=== PATIENT | male | born 1995 | race Caucasian/White ===

== ENCOUNTER 2017-04-28 03:19 | Emergency (ER) | payer OTHER ==
[~2017-04-28] VITALS: Ht 182.9 cm; Wt 61.0 kg
[2017-04-28] MEDS ORDERED: LIDOCAINE HCL 1% 10 ML VIAL INJ ONE (03:45)
[2017-04-28 04:31] VITALS: BP 121/83
== END 2017-04-28 04:35 | disposition home or self-care (01) ==
LOC: EMS 03:22
DX: S61.101A Unspecified open wound of right thumb with damage to nail, initial encounter (principal); S67.01XA Crushing injury of right thumb, initial encounter; W23.0XXA Caught, crushed, jammed, or pinched between moving objects, initial encounter; Y93.89 Activity, other specified; Y92.89 Other specified places as the place of occurrence of the external cause; Y99.8 Other external cause status
CPT/HCPCS: 11730; 73130; 99284; J3490

== ENCOUNTER 2017-08-23 17:06 | Inpatient (IN) | payer MEDICAID, OTHER ==
[~2017-08-23] VITALS: Ht 182.9 cm; Wt 62.6 kg
[2017-08-23] MEDS ORDERED: VENL25TA47 PO (18:20)
[2017-08-23] MEDS ORDERED: QUET200T PO (18:20)
[2017-08-23 18:55] LABS: BASOPHILS % (AUTO) 1.3 % (0.0-2.0); EOSINOPHILS % (AUTO) 3.9 % (1.0-6.0); HEMATOCRIT 41.6 % (41-53); HEMOGLOBIN 14.8 g/dL (13.5-17.5); LYMPHOCYTES # (AUTO) 1.6 K/uL (1.0-4.8); LYMPHOCYTES % (AUTO) 26.8 % (22.0-44.0); MEAN CORPUSCULAR HEMOGLOBIN 31.9 pg (26.0-34.0); MEAN CORPUSCULAR HGB CONC 35.4 G/dL (31.0-37.0); MEAN CORPUSCULAR VOLUME 90 fL (80-100); MONOCYTES # (AUTO) 0.6 K/uL (0.1-1.0); MONOCYTES % (AUTO) 9.9 % (2.0-9.0); NEUTROPHILS # (AUTO) 3.4 K/uL (1.8-7.7); NEUTROPHILS % (AUTO) 58.1 % (40.0-70.0); PLATELET COUNT (AUTO) 152 K/uL (150-450); RED BLOOD CELL COUNT(AUTO) 4.63 MIL/uL (4.50-5.90); RED CELL DISTRIBUTION WIDTH 14.7 % (11.5-14.5)
[2017-08-23 18:59] LABS: ANION GAP 7 mmol/L (8-16); CALCIUM, TOTAL 8.6 mg/dL (8.8-10.5); CARBON DIOXIDE 27 mmol/L (22-29); CHLORIDE 109 mmol/L (98-107); CREATININE 0.86 mg/dL (0.60-1.30); GLOMERULAR FILTR. RATE CALC > 60 mL/min (>60); POTASSIUM 4.3 mmol/L (3.5-5.1); SODIUM SERUM 143 mmol/L (136-145); UREA NITROGEN, BLOOD 12 mg/dL (7-18)
[2017-08-23 19:07] LABS: ALANINE AMINOTRANSFERASE 26 U/L (12-78); ALBUMIN 3.8 g/dL (3.4-5.0); ALKALINE PHOSPHATASE 99 U/L (46-116); ASPARTATE AMINOTRANSFERASE 24 U/L (15-37); BILIRUBIN,TOTAL 1.2 mg/dL (0.1-1.0); GLUCOSE,RANDOM 89 mg/dL (70-110); TOTAL PROTEIN, SERUM 7.3 g/dL (6.4-8.2)
[2017-08-23] MEDS ORDERED: LORazepam 2 MG TABLET PO ONE (19:30)
[2017-08-24] MEDS: LORazepam 2 MG TABLET PO PRN ×2 (00:26→20:25)
[2017-08-24 01:36] VITALS: BP 103/79
[2017-08-24 08:33] VITALS: BP 111/70
[2017-08-24] MEDS: HALOPERIDOL 5 MG TABLET PO PRN (09:16)
[2017-08-24] MEDS: VENLAFAXINE HCL 37.5 MG ER CAPSULE PO SCH (11:43)
[2017-08-24] MEDS ORDERED: BISACODYL 5 MG EC TABLET PO PRN (12:30)
[2017-08-24 16:00] VITALS: BP 117/61
[2017-08-24] MEDS: QUEtiapine FUMARATE 200 MG TABLET PO SCH (20:11)
[2017-08-25 08:30] VITALS: BP 114/80
[2017-08-25] MEDS: VENLAFAXINE HCL 37.5 MG ER CAPSULE PO SCH (08:34)
[2017-08-25] MEDS: NICOTINE 14 MG/24 HOUR PATCH TD SCH (08:34)
[2017-08-25 16:43] VITALS: BP 106/60
[2017-08-25] MEDS: LORazepam 2 MG TABLET PO PRN (17:03)
[2017-08-25] MEDS: QUEtiapine FUMARATE 200 MG TABLET PO SCH (21:55)
[2017-08-25] MEDS: ZOLPIDEM TARTRATE 10 MG TABLET PO PRN (21:55)
[2017-08-26 01:45] VITALS: BP 110/70
[2017-08-26] MEDS: LORazepam 2 MG TABLET PO PRN ×3 (01:52→18:11)
[2017-08-26] MEDS: NICOTINE 14 MG/24 HOUR PATCH TD SCH (08:07)
[2017-08-26] MEDS: VENLAFAXINE HCL 37.5 MG ER CAPSULE PO SCH (08:07)
[2017-08-26 08:36] VITALS: BP 123/77
[2017-08-26] MEDS: HALOPERIDOL 5 MG TABLET PO PRN (11:14)
[2017-08-26 16:06] VITALS: BP 122/80
[2017-08-26] MEDS: QUEtiapine FUMARATE 300 MG TABLET PO SCH (21:25)
[2017-08-27 00:40] VITALS: BP 101/63
[2017-08-27 05:15] VITALS: BP 107/68
[2017-08-27] MEDS: LORazepam 2 MG TABLET PO PRN ×2 (05:16→14:46)
[2017-08-27 08:00] VITALS: BP 112/63
[2017-08-27] MEDS: NICOTINE 14 MG/24 HOUR PATCH TD SCH (08:56)
[2017-08-27] MEDS: VENLAFAXINE HCL 37.5 MG ER CAPSULE PO SCH (08:56)
[2017-08-27] MEDS: HALOPERIDOL 5 MG TABLET PO PRN ×2 (09:05→17:09)
[2017-08-27 14:45] VITALS: BP 111/72
[2017-08-27 16:16] VITALS: BP 111/64
[2017-08-27] MEDS: ZOLPIDEM TARTRATE 10 MG TABLET PO PRN (20:45)
[2017-08-27] MEDS: QUEtiapine FUMARATE 300 MG TABLET PO SCH (20:45)
[2017-08-28 05:41] VITALS: BP 105/64
[2017-08-28 08:00] VITALS: BP 115/64
[2017-08-28] MEDS: VENLAFAXINE HCL 37.5 MG ER CAPSULE PO SCH (09:53)
[2017-08-28] MEDS: NICOTINE 14 MG/24 HOUR PATCH TD SCH (09:57)
[2017-08-28] MEDS: LORazepam 2 MG TABLET PO PRN (16:33)
[2017-08-28 16:35] VITALS: BP 117/71
[2017-08-28] MEDS: QUEtiapine FUMARATE 300 MG TABLET PO SCH (20:21)
[2017-08-29] MEDS: ZOLPIDEM TARTRATE 10 MG TABLET PO PRN (02:59)
[2017-08-29 03:00] VITALS: BP 101/62
[2017-08-29 08:35] VITALS: BP 102/64
[2017-08-29] MEDS: VENLAFAXINE HCL 37.5 MG ER CAPSULE PO SCH (08:40)
[2017-08-29] MEDS: NICOTINE 14 MG/24 HOUR PATCH TD SCH (08:40)
[2017-08-29] MEDS: LORazepam 2 MG TABLET PO PRN ×2 (09:39→13:32)
[2017-08-29] MEDS: HALOPERIDOL 5 MG TABLET PO PRN (15:56)
[2017-08-29 16:05] VITALS: BP 127/70
[2017-08-29] MEDS ORDERED: VENL-66 PO (16:27)
[2017-08-29] MEDS ORDERED: QUET300T2 PO (16:27)
== END 2017-08-29 17:05 | disposition home or self-care (01) | DRG 750 ==
LOC: EMS 17:07 → B2S 21:30
PROVIDERS: ADMIT Psychiatry & Neurology Child & Adolescent Psychiatry; ATTEND Psychiatry & Neurology Child & Adolescent Psychiatry
DX: F25.1 Schizoaffective disorder, depressive type (principal); R45.851 Suicidal ideations; Z59.0 Homelessness; J45.909 Unspecified asthma, uncomplicated; K59.00 Constipation, unspecified; F17.200 Nicotine dependence, unspecified, uncomplicated; Z79.899 Other long term (current) drug therapy; Z91.5 Personal history of self-harm
CPT/HCPCS: 99285; G0480